=== PATIENT | male | born 1980 | race Hispanic/Latino ===

== ENCOUNTER 2024-08-22 21:06 | Emergency (ER) | payer BC ==
[~2024-08-22] VITALS: Ht 167.6 cm; Wt 71.2 kg
[2024-08-22] MEDS: ASPIRIN 325 MG TAB PO ONE (23:28)
[2024-08-22 23:31] VITALS: TEMP 98.6
[2024-08-22 23:35] VITALS: PULSE 101; RESP 18; TEMP 98.6; O2SAT 98
== END 2024-08-22 23:33 | disposition home or self-care (01) ==
LOC: FSED 21:21
DX: R07.89 Other chest pain (principal); F14.90 Cocaine use, unspecified, uncomplicated; R20.0 Anesthesia of skin; F17.210 Nicotine dependence, cigarettes, uncomplicated
CPT/HCPCS: 71046; 80053; 80307; 82553; 84484; 85025; 85379; 93005; 99284